=== PATIENT | female | born 1970 | race Caucasian/White ===

== ENCOUNTER 2020-12-07 13:37 | Observation (INO) ==
--- NOTE | 2020-12-07 14:29 | Emergency Department Note ---
Impression & Plan Transaminitis, Chest pain, Abdominal pain ED Provider Note NAME: STEF HORTON AGE: 50 SEX: F : 1970 ARRIVES VIA: Walk-In INFORMANT: Patient, ED PROVIDER(S): Cj Jay MD Chief Complaint: Chest pain and shoulder pain HPI: Patient does present with concern for chest discomfort as well as shoulder pain. The patient states that the chest discomfort is really in her lower chest almost at the epigastric area. The patient states that it does cause increasing pain whenever she takes a big deep breath. The patient states it has been intermittent in nature. The patient does not is feel as though the chest pain radiates to the shoulder that there are 2 separate pains. Patient states that it is 8 out of 10 in nature and sharp. The patient denies any fevers chills or shortness of breath. Patient denies any lower extremity swelling or history of DVT. The patient does not use control or estrogen replacement therapy. Patient has had mild nausea but no vomiting. The patient has not taken anything at home for symptoms. The patient is vaccinated for Covid. The patient does relate that this does feel somewhat similar to her prior time that she required a cholecystectomy. ROS: See HPI for pertinent positives and negatives. A total of 10 systems were reviewed and otherwise negative. Past medical history: See below Surgical history: See below Social history: See below Physical Exam: GENERAL: NAD, wearing a mask, non-toxic. EYE EXAM: Normal conjunctiva. PERRL, no anisocoria and EOM's grossly intact w/o pain. OROPHARYNX: Moist mucus membranes. Grossly normal dentition. NECK: Supple, no nuchal rigidity, no adenopathy, non-tender. No signs of meningismus. LUNGS: Clear to auscultation. Normal chest wall mechanics. HEART: NSR, no MRG. ABDOMEN: Abdomen soft, epigastric pain, no lower abdominal pain, normo-active bowel sounds, no masses, no rebound or guarding. BACK: No CVA TTP. SKIN: No rashes and no bruising. UPPER EXTREMITIES: Upper extremities are grossly normal. LOWER EXTREMITIES: Grossly normal, no edema. NEURO EXAM: A&O x3, cranial nerves II-XII grossly intact, normal speech, moves all 4 extremities on command w/o issue. Differential diagnoses: Appendicitis, ovarian cyst, ovarian torsion, ectopic , TOA, PID, infections, diverticulitis, UTI, obstruction, mesenteric ischemia, aortic pathology, inflammatory bowel disease, renal colic, PUD, pancreatitis, biliary pathology, hernia, volvulus, constipation, as well as other pathologies. Course: Patient was seen and evaluated the bedside. Full history physical exam was performed. EKG interpreted by me Normal sinus rhythm, 77, normal intervals, normal axis, T wave inversion in lead III not in contiguous leads. No ST changes. Imaging Studies: See Below Cardiac monitoring: An order was placed for continuous cardiac monitoring. The monitor shows a rate of 70 with sinus rhythm. MDM: Patient does present with concern for chest pain although this may be more epigastric or abdominal pain. Blood work was obtained along with a D-dimer. Patient is white count of 10.8 with normal hemoglobin. Platelet count is unremarkable. Patient's liver function test testing shows elevation AST ALT and alk phos. Lipase is elevated. EKG with no ischemic changes and troponin is not detectable. Patient has not complained of any exertional symptoms believe atypical chest pain to be less likely. I do think that the patient's chest pain that she describes is related to the patient's abdominal pain. Patient did have an elevated D-dimer but I think is likely due to the inflammatory process in her abdomen and do not believe the patient has PE. The patient has no signs stigmata DVT on exam. The patient CT does not show any convincing evidence of pancreatitis but the patient does have biliary ductal dilatation. The patient may have a stricture or possible stone in the duct. I did order an MRCP. I spoke with Dr. Jackson who is in agreement with plan of care. I also did speak with the on-call hospitalist Sol Robbins PA-C and the patient was admitted by Dr. Salvador. Of note the patient did have cyst of the left breast. The patient states that she has been serially followed and will ensure that she follows up as an outpatient. Past Med/Surg History Social History Smoking Status: Never smoker Feels Safe at Home: Yes Allergies Allergies Allergy/AdvReac Type Severity Reaction Status Date / Time Penicillins Allergy Intermediate RASH, Verified 12/07/20 14:59 VOMITING Home Meds Home Medications Medication Instructions Recorded Confirmed ascorbic acid (vitamin C) 500 mg 500 mg PO DAILY 12/07/20 12/07/20 tablet (Vitamin C) atorvastatin 80 mg tablet 80 mg PO DAILY 12/07/20 12/07/20 cholecalciferol (vitamin D3) 125 125 mcg PO DAILY 12/07/20 12/07/20 mcg (5,000 unit) tablet (Vitamin D3) cyanocobalamin (vitamin B-12) 1,000 mcg PO DAILY 12/07/20 12/07/20 1,000 mcg tablet (Vitamin B-12) levothyroxine 137 mcg tablet 137 mcg PO DAILY 12/07/20 12/07/20 losartan 25 mg tablet 25 mg PO DAILY 12/07/20 12/07/20 metformin 500 mg tablet 1,000 mg PO BID 12/07/20 12/07/20 omeprazole 20 mg capsule,delayed 20 mg PO DAILYBB 12/07/20 12/07/20 release semaglutide (Ozempic) 0.25 mg SUBCUT WK 12/07/20 12/07/20 venlafaxine 75 mg capsule,extended 75 mg PO DAILY 12/07/20 12/07/20 release 24 hr Results & Data (ED) Vital Signs Vital Signs - 24 hr 12/07/20 13:38 12/07/20 14:48 12/07/20 15:17 Temperature 36.9 C Temperature Source Oral Pulse Rate 87 80 67 Pulse Rate [Finger] 77 Pulse Rate from SpO2 Sensor 66 Respiratory Rate 18 18 18 Blood Pressure 132/83 130/75 Blood Pressure [Right Arm] 118/74 Blood Pressure Mean 99 93 Blood Pressure Mean [Right Arm] 88 Pulse Oximetry 98 98 96 Oxygen Delivery Method Room Air Oxygen Flow Rate Sepsis Recent Fever Within 48 Hours No Sepsis New/Unexplained Change in Mental Status No Sepsis Action Taken by Nursing No Action Required Oxygen Flow Rate - Titration Pulse Oximetry Post Tiitration 12/07/20 15:38 12/07/20 16:28 12/07/20 17:11 Temperature 36.8 C Temperature Source Axillary Pulse Rate 66 Pulse Rate [Finger] 84 Pulse Rate from SpO2 Sensor Respiratory Rate 18 22 Blood Pressure 130/86 Blood Pressure [Right Arm] 122/75 Blood Pressure Mean 100 Blood Pressure Mean [Right Arm] 90 Pulse Oximetry 97 91 Oxygen Delivery Method Room Air Nasal Cannula Oxygen Flow Rate 2 Sepsis Recent Fever Within 48 Hours Sepsis New/Unexplained Change in Mental Status Sepsis Action Taken by Nursing Oxygen Flow Rate - Titration 2 Pulse Oximetry Post Tiitration 95 12/07/20 18:51 Temperature 37 C Temperature Source Oral Pulse Rate Pulse Rate [Finger] 70 Pulse Rate from SpO2 Sensor Respiratory Rate 18 Blood Pressure Blood Pressure [Right Arm] 130/86 Blood Pressure Mean Blood Pressure Mean [Right Arm] 100 Pulse Oximetry 97 Oxygen Delivery Method Oxygen Flow Rate Sepsis Recent Fever Within 48 Hours Sepsis New/Unexplained Change in Mental Status Sepsis Action Taken by Nursing Oxygen Flow Rate - Titration Pulse Oximetry Post Tiitration Home Medications Current Medication List: was personally reviewed by me Laboratory Data Attestation: I reviewed the patient's lab results. Result diagrams: 12/07/20 15:10 12/07/20 15:10 Lab Results 12/07/20 12/07/20 12/07/20 Range/Units 15:10 15:10 15:10 WBC 10.89 H (4.8-10.8) K/uL RBC 5.14 (4.2-5.4) M/uL Hgb 15.7 (12.0-16.0) g/dL Hct 47.4 H (37-47) % MCV 92.2 (80-100) fL MCH 30.5 (25-34) pg MCHC 33.1 (32-36) g/dL RDW Std Deviation 43.7 (36.4-46.3) fL RDW Coeff of Nidia 12.8 (11.5-14.5) % Plt Count 240 (130-400) K/uL MPV 10.2 (7.4-10.4) fL Immature Gran % (Auto) 0.2 % Neut % (Auto) 54.7 % Lymph % (Auto) 33.1 % [place] % (Auto) 8.5 % Eos % (Auto) 3.1 % Baso % (Auto) 0.4 % Neut # (Auto) 5.96 (1.4-6.5) K/uL Lymph # (Auto) 3.60 H (1.2-3.4) K/uL [place] # (Auto) 0.93 H (0.11-0.59) K/uL Eos # (Auto) 0.34 (0-0.5) K/uL Baso # (Auto) 0.04 (0-0.2) K/uL Immature Gran # (Auto) 0.02 (0.00-0.02) K/uL APTT 23.6 (21.0-31.0) Seconds PTT Ratio 0.9 D-Dimer 650 H* (0-500) ug/L FEU Sodium 139 (136-145) mmol/L Potassium 3.9 (3.5-5.1) mmol/L Chloride 106 (98-107) mmol/L Carbon Dioxide 29 (21-32) mmol/L Anion Gap 4.0 (3-11) BUN 11 (7-18) mg/dl Creatinine 0.87 (0.6-1.2) mg/dl Est Cr Clr Drug Dosing 81.4 ml/min Est GFR ( Amer) 88.8 ml/min Est GFR (Non-Af Amer) 76.6 ml/min BUN/Creatinine Ratio 13.1 (10-20) Glucose 99 (70-99) mg/dl Calcium 9.1 (8.5-10.1) mg/dl Total Bilirubin 0.7 (0.2-1) mg/dl AST 443 H (15-37) U/L ALT 267 H (12-78) U/L Alkaline Phosphatase 146 H (45-117) U/L Troponin I < 0.015 (0-0.045) ng/ml Total Protein 7.6 (6.4-8.2) gm/dl Albumin 3.7 (3.4-5.0) gm/dl Globulin 3.9 (2.5-4.0) gm/dl Albumin/Globulin Ratio 0.9 (0.9-2) Lipase 605 H (73-393) U/L Administered Medications Discontinued Medications Famotidine (Pepcid 20mg Iv Push) 20 mg in 5 mls @ 2.5 mls/min IV NOW STA Stop: 12/07/20 14:49 Last Admin: 12/07/20 15:24 Dose: 2.5 mls/min Documented by: [id number] Sodium Chloride (Nss 1000ml) 1,000 mls @ 999 mls/hr IV .Q1H1M ONE Stop: 12/07/20 15:50 Last Infusion: 12/07/20 16:39 Dose: 0 mls/hr Documented by: [id number] Admin: 12/07/20 15:05 Dose: 999 mls/hr Documented by: [id number] Ioversol (Optiray 320 100ml) 94 ml IV ONCE ONE Stop: 12/07/20 16:16 Last Admin: 12/07/20 16:15 Dose: 94 ml Documented by: [id number] Ondansetron HCl (Ondansetron Inj 2 Mg/Ml 2 Ml Vial) 4 mg IV NOW STA Stop: 12/07/20 14:49 Last Admin: 12/07/20 15:24 Dose: 4 mg Documented by: [id number] Imaging Data Radiologist's Impression: Chest X-Ray 12/07/20 14:48 XR chest 1V portable CLINICAL HISTORY: Chest Pain COMPARISON STUDY: No previous studies for comparison. FINDINGS: Lung volumes are normal. There is no pneumothorax or pleural effusion. No consolidation is identified. Cardiac size is within normal limits. No evidence for pulmonary edema. IMPRESSION: No acute cardiopulmonary findings. ACT 112: Negative or not required by law. Electronically signed by: Jose Whatley M.D. 12/07/2020 3:34 PM Abdomen/Pelvis CT 12/07/20 15:52 CT OF THE ABDOMEN AND PELVIS WITH CONTRAST CLINICAL HISTORY: Abdominal pain, elevated transaminases/lipase COMPARISON STUDY: None. TECHNIQUE: Following IV administration of 94 mL of Optiray, axial images of the abdomen and pelvis were obtained from the lung bases to the proximal femurs. Images were reviewed in the axial, sagittal, and coronal planes. IV contrast was administered without complication. Automated exposure control was utilized for the study. A dose lowering technique was utilized adhering to the principles of ALARA. CT DOSE: 1192.27 mGy.cm FINDINGS: Lung bases are unremarkable. Note is made of a 3 cm density within the lower inner quadrant of the left breast. This is suboptimally assessed by CT. No pneumatosis, free air or portal venous gas is present. There is hepatic steatosis. No hepatic lesions are present. A splenule is noted. The spleen, adrenal glands and pancreas are unremarkable by CT. There is no peripancreatic infiltration. There are are no peripancreatic fluid collections. The gallbladder is not visualized and may be surgically absent. There is slight dilatation of the common bile duct, measuring 8 mm in caliber. A few hypodense right renal lesions are difficult to characterize given their small size but probably ref lect cysts. There is no hydronephrosis. There are no urinary calculi. The appendix is not visualized. There is no right lower quadrant inflammation. The caliber and wall thickness of small and large bowel are normal. Major vasculature is patent. There is no lymphadenopathy or ascites. No acute fracture or suspicious lesion is identified within visualized skeletal structures. IMPRESSION: 1. Normal CT appearance of the pancreas. Nonvisualization of the gallbladder which may be surgically absent. Mild dilatation of the common bile duct which could be correlated with liver function tests. 2. Hepatic steatosis. 3. No bowel obstruction. No bowel wall thickening. 4. 3 cm density within the lower inner quadrant of the left breast. This pr obably reflects normal breast tissue or cluster of cysts. However, a mammogram and ultrasound are recommended to exclude a breast mass. ACT 112: Negative or not required by law. Electronically signed by: Jose Whatley M.D. 12/07/2020 4:49 PM Discharge Plan Visit Data Chief Complaint: Chest Pain Stated Complaint: CHEST PAIN,SOB,INTO LEFT SHOULDER,NAUSEA ED Provider: Cj Jay Discharge Problem: Transaminitis, Chest pain, Abdominal pain Patient Disposition: Admitted As Inpatient Forms Stand Alone Forms: [facility] Prescriptions Prescriptions: No Action levothyroxine 137 mcg Tablet 137 mcg PO DAILY RF: 0 metformin 500 mg tablet 1,000 mg PO BID RF: 0 atorvastatin 80 mg tablet 80 mg PO DAILY RF: 0 venlafaxine 75 mg capsule,extended release 24hr 75 mg PO DAILY RF: 0 cyanocobalamin (vitamin B-12) [Vitamin B-12] 1,000 mcg Tablet 1,000 mcg PO DAILY RF: 0 ascorbic acid (vitamin C) [Vitamin C] 500 mg Tablet 500 mg PO DAILY RF: 0 losartan 25 mg tablet 25 mg PO DAILY RF: 0 omeprazole 20 mg capsule,delayed release(DR/EC) 20 mg PO DAILYBB RF: 0 Ozempic 0.25 mg or 0.5 mg(2 mg/1.5 mL) pen injector 0.25 mg SUBCUT WK RF: 0 cholecalciferol (vitamin D3) [Vitamin D3] 125 mcg (5,000 unit) Tablet 125 mcg PO DAILY RF: 0 Referrals Referrals: PCP,NO [Physician] -
[2020-12-07] MEDS ORDERED: ONDANSETRON INJ 2 MG/ML 2 ML VIAL IV STA (14:48)
[2020-12-07] MEDS ORDERED: FAMOTIDINE 20MG IV PUSH 20 MG/5 ML SYR IV STA (14:48)
[2020-12-07] MEDS ORDERED: SODIUM CHLORIDE 0.9% 1000ML 1,000 ML IV ONE (14:50)
[2020-12-07 15:28] LABS: Basophils # (auto) 0.04 K/uL (0-0.2); Basophils % (auto) 0.4 %; Eosinophils # (auto) 0.34 K/uL (0-0.5); Eosinophils % (auto) 3.1 %; Hematocrit (blood only) 47.4 % (37-47); Hemoglobin 15.7 g/dL (12.0-16.0); Immature Granulocytes # (auto) 0.02 K/uL (0.00-0.02); Immature Granulocytes % (auto) 0.2 %; Lymphocytes % (auto) 33.1 %; Mean Corpuscular Hemoglobin 30.5 pg (25-34); Mean Corpuscular Hgb Conc 33.1 g/dL (32-36); Mean Corpuscular Volume 92.2 fL (80-100); Mean Platelet Volume 10.2 fL (7.4-10.4); Monocytes # (auto) 0.93 K/uL (0.11-0.59); Monocytes % (auto) 8.5 %; Neutrophils # (auto) 5.96 K/uL (1.4-6.5); Neutrophils % (auto) 54.7 %; Platelet Count 240 K/uL (130-400); RDW Coefficient of Variation 12.8 % (11.5-14.5); RDW Standard Deviation 43.7 fL (36.4-46.3); Red Blood Count 5.14 M/uL (4.2-5.4); White Blood Count 10.89 K/uL (4.8-10.8)
--- NOTE | 2020-12-07 15:36 | XRay Report ---
XR chest 1V portable CLINICAL HISTORY: Chest Pain COMPARISON STUDY: No previous studies for comparison. FINDINGS: Lung volumes are normal. There is no pneumothorax or pleural effusion. No consolidation is identified. Cardiac size is within normal limits. No evidence for pulmonary edema. IMPRESSION: No acute cardiopulmonary findings. ACT 112: Negative or not required by law. Electronically signed by: Jose Whatley M.D. 12/07/2020 3:34 PM
[2020-12-07 15:38] LABS: Partial Thromboplastin Ratio 0.9; Partial Thromboplastin Time 23.6 Seconds (21.0-31.0)
[2020-12-07 15:39] LABS: D Dimer 650 ug/L FEU (0-500)
[2020-12-07 15:44] LABS: Alanine Aminotransferase 267 U/L (12-78); Albumin Level 3.7 gm/dl (3.4-5.0); Aspartate Aminotransferase 443 U/L (15-37); BUN Creatinine Ratio 13.1 (10-20); Blood Urea Nitrogen 11 mg/dl (7-18); Calcium 9.1 mg/dl (8.5-10.1); Carbon Dioxide 29 mmol/L (21-32); Chloride 106 mmol/L (98-107); Creatinine Clr Calc Pharmacy 81.4 ml/min; Est GFR (African American) 88.8 ml/min; Est GFR (Non-African American) 76.6 ml/min; Glucose 99 mg/dl (70-99); Lipase 605 U/L (73-393); Potassium 3.9 mmol/L (3.5-5.1); Sodium 139 mmol/L (136-145)
[2020-12-07 15:49] LABS: Albumin Globulin Ratio 0.9 (0.9-2); Alkaline Phosphatase 146 U/L (45-117); Bilirubin,Total 0.7 mg/dl (0.2-1); Globulin 3.9 gm/dl (2.5-4.0); Total Protein 7.6 gm/dl (6.4-8.2); Troponin I < 0.015 ng/ml (0-0.045)
[2020-12-07] MEDS ORDERED: OPTIRAY 320 100ml IV ONE (16:15)
--- NOTE | 2020-12-07 16:50 | CT Scan Report ---
CT OF THE ABDOMEN AND PELVIS WITH CONTRAST CLINICAL HISTORY: Abdominal pain, elevated transaminases/lipase COMPARISON STUDY: None. TECHNIQUE: Following IV administration of 94 mL of Optiray, axial images of the abdomen and pelvis we re obtained from the lung bases to the proximal femurs. Images were reviewed in the axial, sagittal, and coronal planes. IV contrast was administered without complication. Automated exposure control wa s utilized for the study. A dose lowering technique was utilized adhering to the principles of ALARA . CT DOSE: 1192.27 mGy.cm FINDINGS: Lung bases are unremarkable. Note is made of a 3 cm density within the lower inner quadrant of the left breast. This is suboptimally assessed by CT. No pneumatosis, free air or portal venous gas is present. There is hepatic steatosis. No hepatic lesi ons are present. A splenule is noted. The spleen, adrenal glands and pancreas are unremarkable by CT. There is no peripancreatic infiltration. There are are no peripancreatic fluid collections. The gall bladder is not visualized and may be surgically absent. There is slight dilatation of the common bile duct, measuring 8 mm in caliber. A few hypodense right renal lesions are difficult to characterize g iven their small size but probably reflect cysts. There is no hydronephrosis. There are no urinary ca lculi. The appendix is not visualized. There is no right lower quadrant inflammation. The caliber and wall thickness of small and large bowel are normal. Major vasculature is patent. There is no lymphad enopathy or ascites. No acute fracture or suspicious lesion is identified within visualized skeletal structures. IMPRESSION: 1. Normal CT appearance of the pancreas. Nonvisualization of the gallbladder which may be surgically absent. Mild dilatation of the common bile duct which could be correlated with liver function tests. 2. Hepatic steatosis. 3. No bowel obstruction. No bowel wall thickening. 4. 3 cm density within the lower inner quadrant of the left breast. This probably reflects normal gail ast tissue or cluster of cysts. However, a mammogram and ultrasound are recommended to exclude a yamilet st mass. ACT 112: Negative or not required by law. Electronically signed by: Jose Whatley M.D. 12/07/2020 4:49 PM
--- NOTE | 2020-12-07 18:46 | History & Physical Report ---
Date of Service December 07, 2020 Assessment & Plan (1) Abdominal pain: (2) Transaminitis: Plan: Pt is 50 y/o F with PMH DM II, HTN, dyslipidemia, depression, anxiety, GERD presented to ER with c/o chest pain, upper abdominal pain today after eating cereal with nausea and episode SOB. Several weeks with left shoulder aching radiating to back. H/O cholecystectomy In ER patient afebrile, vitals stable. WBC: 10.8, T bili: 0.7, AST: 443, ALT: 267, alk phos: 146, lipase: 605. D-dimer: 650, CT abdomen pelvis: Mild dilatation of the common bile duct which could be correlated with liver function tests, hepatic steatosis. Possible retained gallstone and common bile duct In ER was given IVF, Pepcid, Zofran with relief of nausea. LR at 200 mL/hour N.p.o. Tramadol as needed pain MRCP pending GI consult CBC, CMP in a.m. (3) Elevated d-dimer: Plan: D-dimer: 650 Patient had episode of shortness of breath with abdominal pain today. Since in ER has not had any further shortness of breath. No tachypnea no tachycardia and no hypoxia noted Low suspicion for PE Patient had IVP dye with CT abdomen pelvis today already. Will hold on CTA chest currently Obtain bilateral venous Doppler lower extremities to rule out DVT May need to consider CTA chest tomorrow (4) Diabetes mellitus, type II: Plan: A1c: 7.2 on 10/13/2020 Hold home glycemic agents NovoLog sliding scale per protocol (5) HTN (hypertension): Plan: Stable Continue losartan (6) Dyslipidemia: Plan: Hold statin at this time (7) Hypothyroidism: Plan: Continue levothyroxine (8) Anxiety and depression: Plan: Continue Effexor (9) Abnormal CT scan: Plan: CT abdomen and pelvis: 3 cm density within the lower inner quadrant of the left breast. This probably reflects normal breast tissue or cluster of cysts. Will need mammogram/ultrasound to further exclude a breast mass. DVT Prophylaxis -SCDs Full Code as per discussion with pt Follows with Dr Garcia for routine care Pt was seen and care coordinated with Dr Salvador. See addendum History of Present Illness Chief Complaint: chest pain/abdominal pain Primary Care Provider: Beatriz Garcia, DO Pt is 50 y/o F with PMH DM II, HTN, dyslipidemia, depression, anxiety, GERD presented to ER with c/o chest pain, upper abdominal pain. Pt states 2 days ago had episode sharp mid lower chest/mid upper abdominal pain. Today he ate bowl of cereal and shortly after developed mid upper abdominal pain and mid lower chest pain described as sharp in nature. Reports also had associated shortness of breath. Having nausea today, no vomiting. Past several weeks with left shoulder aching radiating to back. Denies lower extremity pain, edema or erythema. Patient with history of cholecystectomy. She reports this current pain and left shoulder aching feels like when she had prior gallbladder attacks. Denies fever/chills, diaphoresis, diarrhea, constipation, DOWNING, dizziness, syncope, vision changes, neck pain, orthopnea, palpitations, cough, sore throat, choking, otalgia, rhinorrhea, paresthesias, weakness, extremity weakness, rashes, urinary symptoms. Denies recent surgery, recent travel, or prolonged immobilization. In ER patient afebrile, vitals stable. WBC: 10.8, T bili: 0.7, AST: 443, ALT: 267, alk phos: 146, lipase: 605. D-dimer: 650, CT abdomen pelvis: Mild dilatation of the common bile duct which could be correlated with liver function tests, hepatic steatosis. In ER was given IVF, Pepcid, Zofran with relief of nausea. Patient has not had any further shortness of breath and reports abdominal pain is much improved. Allergies Allergy/AdvReac Type Severity Reaction Status Date / Time Penicillins Allergy Intermediate RASH, Verified 12/07/20 14:59 VOMITING Home Medications Medication Instructions Recorded Confirmed Type ascorbic acid (vitamin C) 500 mg 500 mg PO DAILY 12/07/20 12/07/20 History tablet (Vitamin C) atorvastatin 80 mg tablet 80 mg PO DAILY 12/07/20 12/07/20 History cholecalciferol (vitamin D3) 125 125 mcg PO DAILY 12/07/20 12/07/20 History mcg (5,000 unit) tablet (Vitamin D3) cyanocobalamin (vitamin B-12) 1,000 mcg PO DAILY 12/07/20 12/07/20 History 1,000 mcg tablet (Vitamin B-12) levothyroxine 137 mcg tablet 137 mcg PO DAILY 12/07/20 12/07/20 History losartan 25 mg tablet 25 mg PO DAILY 12/07/20 12/07/20 History metformin 500 mg tablet 1,000 mg PO BID 12/07/20 12/07/20 History omeprazole 20 mg capsule,delayed 20 mg PO DAILYBB 12/07/20 12/07/20 History release semaglutide (Ozempic) 0.25 mg SUBCUT WK 12/07/20 12/07/20 History venlafaxine 75 mg capsule,extended 75 mg PO DAILY 12/07/20 12/07/20 History release 24 hr Past Med/Surg History Medical History Anxiety and depression Diabetes mellitus, type II Dyslipidemia HTN (hypertension) Hypothyroidism Surgical History History of cholecystectomy Hx of tonsillectomy Family History Other Cancer Diabetes Social History Smoking Status: Never smoker Hx Alcohol Use: No Hx Substance Use: No Preferred Language: South African Communication Ability: Effective Field Property Loss Specialist Required: No Beliefs That Will Affect Care: None Current Living Situation: Spouse Other Information That Helps Us Care for You: No Feels Safe at Home: Yes Safety Concerns: Feels Safe At This Time Assistive Devices: Glasses Review of Systems Review of Systems: All systems reviewed & are unremarkable except as noted in HPI & below Physical Exam Physical Exam: General: no distress, obese Head: normocephalic, atraumatic Eyes: PERRL, EOM's intact, conjunctiva non-injected, anicteric ENT: normal inspection external ears, nose, mucous membranes moist Neck: supple, trachea midline Lungs: clear, no respiratory distress, no wheezing/rhonchi/rales CV: RRR, no murmur, no pretibial edema Abd: normal BS, soft, + tenderness to palpation epigastric only without rebound or guarding Ext: no cyanosis, no erythema, no edema no calf tenderness Neuro: A&O x 3, no focal deficits noted, normal affect Skin: warm, dry Results & Data Results & Data ([facility]) Vital Signs (Past 12 Hours) Vital Signs Temp Pulse Pulse Resp BP BP Pulse Ox 12/07/20 17:11 66 22 130/86 12/07/20 16:28 91 12/07/20 15:38 36.8 C 84 18 122/75 97 12/07/20 15:17 67 18 130/75 96 12/07/20 14:48 80 18 98 12/07/20 13:38 36.9 C 87 77 18 132/83 118/74 98 Laboratory Results Short CBC 12/07/20 Range/Units 15:10 WBC 10.89 H (4.8-10.8) K/uL Hgb 15.7 (12.0-16.0) g/dL Hct 47.4 H (37-47) % Plt Count 240 (130-400) K/uL BMP 12/07/20 15:10 Sodium 139 Potassium 3.9 Chloride 106 Carbon Dioxide 29 BUN 11 Creatinine 0.87 Glucose 99 Calcium 9.1 Cardiac Enzymes 12/07/20 Range/Units 15:10 Troponin I < 0.015 (0-0.045) ng/ml Liver Function 12/07/20 Range/Units 15:10 Total Bilirubin 0.7 (0.2-1) mg/dl AST 443 H (15-37) U/L ALT 267 H (12-78) U/L Alkaline Phosphatase 146 H (45-117) U/L Albumin 3.7 (3.4-5.0) gm/dl Diagnostic Findings Chest X-Ray 12/07/20 14:48 XR chest 1V portable CLINICAL HISTORY: Chest Pain COMPARISON STUDY: No previous studies for comparison. FINDINGS: Lung volumes are normal. There is no pneumothorax or pleural effusion. No consolidation is identified. Cardiac size is within normal limits. No evidence for pulmonary edema. IMPRESSION: No acute cardiopulmonary findings. ACT 112: Negative or not required by law. Electronically signed by: Jose Whatley M.D. 12/07/2020 3:34 PM Abdomen/Pelvis CT 12/07/20 15:52 CT OF THE ABDOMEN AND PELVIS WITH CONTRAST CLINICAL HISTORY: Abdominal pain, elevated transaminases/lipase COMPARISON STUDY: None. TECHNIQUE: Following IV administration of 94 mL of Optiray, axial images of the abdomen and pelvis were obtained from the lung bases to the proximal femurs. Images were reviewed in the axial, sagittal, and coronal planes. IV contrast was administered without complication. Automated exposure control was utilized for the study. A dose lowering technique was utilized adhering to the principles of ALARA. CT DOSE: 1192.27 mGy.cm FINDINGS: Lung bases are unremarkable. Note is made of a 3 cm density within the lower inner quadrant of the left breast. This is suboptimally assessed by CT. No pneumatosis, free air or portal venous gas is present. There is hepatic steatosis. No hepatic lesions are present. A splenule is noted. The spleen, adrenal glands and pancreas are unremarkable by CT. There is no peripancreatic infiltration. There are are no peripancreatic fluid collections. The gallbladder is not visualized and may be surgically absent. There is slight dilatation of the common bile duct, measuring 8 mm in caliber. A few hypodense right renal lesions are difficult to characterize given their small size but probably reflect cysts. There is no hydronephrosis. There are no urinary calculi. The appendix is not visualized. There is no right lower quadrant inflammation. The caliber and wall thickness of small and large bowel are normal. Major vasculature is patent. There is no lymphadenopathy or ascites. No acute fracture or suspicious lesion is identified within visualized skeletal structures. IMPRESSION: 1. Normal CT appearance of the pancreas. Nonvisualization of the gallbladder which may be surgically absent. Mild dilatation of the common bile duct which could be correlated with liver function tests. 2. Hepatic steatosis. 3. No bowel obstruction. No bowel wall thickening. 4. 3 cm density within the lower inner quadrant of the left breast. This probably reflects normal breast tissue or cluster of cysts. However, a mammogram and ultrasound are recommended to exclude a breast mass. ACT 112: Negative or not required by law. Electronically signed by: Jose Whatley M.D. 12/07/2020 4:49 PM ECG Rate (beats per minute): 77 Rhythm: sinus rhythm Code Status & VTE Plan VTE Prophylaxis Plan VTE Prophylaxis will be ordered: Yes Supervising Physician Co-Signing Physician Notes Attending Addendum: delayed entry date of service noted above care coordinated with YOUSIF Lyle please refer to her notes for full details, I agree with her notes patient seen and examined, records reviewed by myself as well on exam, patient seen resting in bed, comfortable at bedside states she feels improved compared to admission epigastric abdominal pain radiating to left shoulder blade much better no nausea, chills no chest pain, dyspnea, palpitations, dizziness no other symptoms VS noted and reviewed oriented x 3 , not in distress, speaks in sentences with no effort nor accessory muscle use normal rate, regular rhythm, no murmurs clear breath sounds bilaterally non distended, soft, nontender no bipedal edema, erythema, warmth no neuro deficits WBC 10.8 Hg 15.7 Crea 0.89 AST 443 ALT 267 AP 146 T logan 0.[address] abd: 1. Normal CT appearance of the pancreas. Nonvisualization of the gallbladder which may be surgically absent. Mild dilatation of the common bile duct which could be correlated with liver function tests. 2. Hepatic steatosis. 3. No bowel obstruction. No bowel wall thickening. 4. 3 cm density within the lower inner quadrant of the left breast. This probably reflects normal breast tissue or cluster of cysts. However, a mammogram and ultrasound are recommended to exclude a breast mass. ASSESSMENT AND PLAN> MILD ACUTE PANCREATITIS POSSIBLE CHOLEDOCHOLITHIASIS - MRCP ordered IV LR pain control NPO - GI consulted MILD D DIMER ELEVATION 650 no chest pain, dyspnea avoid CT angio as patient already received IV contrast Venous Doppler studies ordered HYPERTENSION Continue usual losartan DIABETES TYPE 2 Hold metformin and Ozempic other diagnoses and plan of care as per YOUSIF Kan notes Calos Salvador MD (1) Abdominal pain Abdominal location: epigastric Qualified Code(s): R10.13 - Epigastric pain
[2020-12-07] MEDS ORDERED: CIPROFLOXACIN / D5W 400 MG/200 ML BAG IV STA (19:58)
[2020-12-07] MEDS ORDERED: metroNIDAZOLE 500 MG/100 ML BAG IV STA (19:59)
[2020-12-07] MEDS ORDERED: CARBOHYDRATES FOR HYPOGLYCEMIA PO PRN (21:31)
[2020-12-07] MEDS ORDERED: PROMETHAZINE HCL 12.5 MG in SODIUM CHLORIDE 0.9% 50 ML IV PRN (21:31)
[2020-12-07] MEDS ORDERED: GLUCAGON FOR INJ 1 MG VIAL SQ PRN (21:31)
[2020-12-07] MEDS ORDERED: DEXTROSE 50% 50 ML SYRINGE IV PRN (21:31)
[2020-12-07] MEDS ORDERED: ACETAMINOPHEN 325 MG TAB PO PRN (21:31)
[2020-12-07] MEDS ORDERED: GLUCOSE 40% GEL 15 GM TUBE PO PRN (21:31)
[2020-12-07] MEDS ORDERED: GLUCOSE 10 TABS/TUBE PO PRN (21:31)
[2020-12-07] MEDS: INSULIN ASPART 100 UNITS/ML 3 ML PEN SC SCH (23:04)
[2020-12-08] MEDS: LACTATED RINGER'S 1,000 ML IV SCH ×2 (00:44→05:31)
[2020-12-08] MEDS: metroNIDAZOLE 500 MG/100 ML BAG IV SCH ×3 (03:59→19:53)
[2020-12-08] MEDS: LEVOTHYROXINE SODIUM 137 MCG TABLET PO SCH (05:31)
[2020-12-08] MEDS: PANTOprazole 40 MG TAB PO SCH (05:33)
--- NOTE | 2020-12-08 06:25 | Ultrasound Report ---
ULTRASOUND BILATERAL LOWER EXTREMITY VENOUS CLINICAL HISTORY: Atypical chest pain. Clinical concern for deep venous thrombosis. COMPARISON STUDY: No priors. TECHNIQUE: Real-time, grayscale, and color Doppler sonography of the deep veins of the right and left lower extremity was performed from the inguinal crease to the calf. Compression and augmentation wer e utilized. FINDINGS: There is no sonographic evidence of deep venous thrombosis identified in the right or left lower extremity. The common femoral, superficial femoral, and popliteal veins are patent and normally compressible bilaterally. The greater saphenous vein and the profunda femoris vein at the junction w ith the common femoral vein are clear in both legs. The visualized calf veins are patent bilaterally. IMPRESSION: There is no sonographic evidence of deep venous thrombosis identified in the right or lef t lower extremity. ACT 112: Negative or not required by law. Electronically signed by: Joshua Garcia M.D. 12/08/2020 6:24 AM
[2020-12-08 07:33] LABS: Hemoglobin 14.3 g/dL (12.0-16.0); Mean Corpuscular Hemoglobin 29.9 pg (25-34); Mean Corpuscular Hgb Conc 32.5 g/dL (32-36); Mean Corpuscular Volume 91.9 fL (80-100); Mean Platelet Volume 10.2 fL (7.4-10.4); Platelet Count 206 K/uL (130-400); RDW Coefficient of Variation 12.9 % (11.5-14.5); RDW Standard Deviation 43.1 fL (36.4-46.3); Red Blood Count 4.79 M/uL (4.2-5.4); White Blood Count 9.12 K/uL (4.8-10.8)
[2020-12-08 07:52] LABS: Albumin Level 3.2 gm/dl (3.4-5.0); BUN Creatinine Ratio 10.6 (10-20); Calcium 8.6 mg/dl (8.5-10.1); Creatinine Clr Calc Pharmacy 79.5 ml/min; Est GFR (African American) 86.4 ml/min; Est GFR (Non-African American) 74.5 ml/min
--- NOTE | 2020-12-08 07:59 | Magnetic Resonance Report ---
MRCP CLINICAL HISTORY: Elevated hepatic transaminases. Elevated lipase. COMPARISON STUDY: Abdominal CT dated 12/07/2020. TECHNIQUE: Abdominal MRCP is performed utilizing various T1 and T2-weighted sequences in the axial an d coronal planes. 3-D reformats are created and assessed. IV contrast was not administered for this e xamination. FINDINGS: The gallbladder is surgically absent. There is no intrahepatic biliary ductal dilatation. The common bile duct is mildly dilated measuring 10 mm in diameter. No intraluminal filling defects are identifi ed to suggest choledocholithiasis. The pancreatic duct is normal in caliber. The liver is enlarged measuring up to 20 cm in length. Hepatic steatosis was shown on today's CT scan . The unenhanced liver is otherwise normal as visualized. The unenhanced spleen, adrenal glands, and pancreas are grossly normal. The kidneys are normal in size and without hydronephrosis. Small renal c ysts measure up to 14 mm. No abdominal ascites is identified. The abdominal aorta is normal in calibe r. There is no bowel obstruction. The visualized bony structures are normal as imaged. No significant pleural effusion is seen. IMPRESSION: 1. Status post cholecystectomy. 2. Nonspecific dilatation of the common bile duct is likely related to previous cholecystectomy/reser voir effect. 3. There is no evidence of choledocholithiasis. 4. Hepatomegaly and hepatic steatosis. Electronically signed by: Joshua Garcia M.D. 12/08/2020 7:58 AM
[2020-12-08] MEDS ORDERED: D5NSS + 20MEQ KCL 20 MEQ/1,000 ML BAG IV SCH (08:00)
[2020-12-08 08:08] LABS: Bilirubin,Total 0.5 mg/dl (0.2-1); Globulin 3.1 gm/dl (2.5-4.0); Total Protein 6.3 gm/dl (6.4-8.2)
--- NOTE | 2020-12-08 08:09 | Gastrointestinal Consultation ---
Date of Consultation December 08, 2020 Assessment & Plan (1) Abnormal CT scan: (2) Pancreatitis: (3) Transaminitis: pancreatitis unclear etiology possibly gallstone? MRCP results pending. She feels well now, it was a mild case nonetheless. She does have elevated LFTs, possibly related to a biliary etiology or in combination with her hepatic steatosis. Recs: --advance diet to low residue now, then advance as tolerated --supportive care --f/u MRCP results, if negative will need more extensive workup for etiologies of her pancreatitis as an outpatient, perhaps an EUS as an outpatient as well. --rest as per primary team Thank you for allowing me to participate in the care of this patient History of Present Illness Attending Physician: Calos Salvador MD History of Present Illness 50 y/o F with PMH DM II, HTN, dyslipidemia, depression, anxiety, GERD presented to ER with c/o chest pain, upper abdominal pain. Her epigastric pains radiated to her shoulders and back, felt like her cholecystitis pain from the when she had CCY. Has not had this pain since then. No hx pancreatitis nor family hx pancreatic disease nor malignancy. She denies alcohol abuse. LFTs were elevated as well as lipase, CT with normal pancreas and dilated CBD as well as hepatic steatosis. Her pains have resolved since being here and no nausea/vomiting, she is hungry and wants to eat. labs reviewed, VSS. MRCP results pending. Allergies Allergy/AdvReac Type Severity Reaction Status Date / Time Penicillins Allergy Intermediate RASH, Verified 12/07/20 14:59 VOMITING Home Medications Medication Instructions Recorded Confirmed Type ascorbic acid (vitamin C) 500 mg 500 mg PO DAILY 12/07/20 12/07/20 History tablet (Vitamin C) atorvastatin 80 mg tablet 80 mg PO DAILY 12/07/20 12/07/20 History cholecalciferol (vitamin D3) 125 125 mcg PO DAILY 12/07/20 12/07/20 History mcg (5,000 unit) tablet (Vitamin D3) cyanocobalamin (vitamin B-12) 1,000 mcg PO DAILY 12/07/20 12/07/20 History 1,000 mcg tablet (Vitamin B-12) levothyroxine 137 mcg tablet 137 mcg PO DAILY 12/07/20 12/07/20 History losartan 25 mg tablet 25 mg PO DAILY 12/07/20 12/07/20 History metformin 500 mg tablet 1,000 mg PO BID 12/07/20 12/07/20 History omeprazole 20 mg capsule,delayed 20 mg PO DAILYBB 12/07/20 12/07/20 History release semaglutide (Ozempic) 0.25 mg SUBCUT WK 12/07/20 12/07/20 History venlafaxine 75 mg capsule,extended 75 mg PO DAILY 12/07/20 12/07/20 History release 24 hr Patient History Medical History Anxiety and depression Diabetes mellitus, type II Dyslipidemia HTN (hypertension) Hypothyroidism Surgical History History of cholecystectomy Hx of tonsillectomy Family History Other Cancer Diabetes Social History Smoking Status: Never smoker Hx Alcohol Use: No Hx Substance Use: No Preferred Language: Marshallese Communication Ability: Effective Key Filer Required: No Beliefs That Will Affect Care: None Current Living Situation: Spouse Other Information That Helps Us Care for You: No Feels Safe at Home: Yes Safety Concerns: Feels Safe At This Time Assistive Devices: Glasses Review of Systems Constitutional: no fever, no chills and no weight loss Eyes: as per Subjective / HPI Ear, Nose, Mouth, Throat: as per Subjective / HPI Respiratory: no dyspnea and no dyspnea on exertion Cardiovascular: no chest pain and no palpitations Gastrointestinal: as per Subjective / HPI Musculoskeletal: no joint pain and no swelling Integumentary: no rash and no lesions Neurologic: no numbness and no paresthesia Psychiatric: no depression and no anxiety Endocrine: no fatigue Hematologic / Lymphatic: no easy bleeding and no easy bruising Physical Exam Constitutional: WD/WN, vitals as above Eyes: EOM intact bilaterally Neck: normal visual inspection Respiratory: normal respiratory effort, lungs clear to auscultation Cardiovascular: RRR, no murmur, no edema Gastrointestinal (Abdomen): Inspection/Auscultation: abdomen normal to inspection; abdomen not distended Percussion/Palpation: abdomen soft; abdomen nontender and no hepatosplenomegaly Musculoskeletal: Extremities: no cyanosis Gait: normal gait Skin: no rashes, warm and dry Neurologic: moves all extremities Psychiatric: A+Ox3, euthymic affect Results & Data ([facility]) Vital Signs (Past 12 Hours) Vital Signs Temp Pulse Pulse Resp BP BP Pulse Ox 12/08/20 07:45 36.7 C 62 18 111/69 95 12/08/20 07:25 56 L 12/08/20 04:20 36.7 C 64 18 103/61 91 12/07/20 23:05 71 12/07/20 22:29 36.9 C 63 18 127/73 94 12/07/20 22:19 66 PG Care Time/CCT Total # of Minutes Spent Total Time Spent with Patient: Total time spent is greater than 50% in coordination of care (as documented) at patient's floor/unit and/or counseling patient: Coding Level of Care Code 01733 Inpt Consult Level [address] scan R93.89 Pancreatitis K85.90 Transaminitis R74.01
[2020-12-08] MEDS: INSULIN ASPART 100 UNITS/ML 3 ML PEN SC SCH ×4 (08:27→21:05)
[2020-12-08] MEDS: VENLAFAXINE HCL XR 75 MG CAPXR PO SCH (08:29)
[2020-12-08] MEDS: LOSARTAN POTASSIUM 25 MG TAB PO SCH (08:29)
[2020-12-08] MEDS: CIPROFLOXACIN / D5W 400 MG/200 ML BAG IV SCH ×2 (08:29→19:53)
[2020-12-08] MEDS: traMADol HCL 50 MG TABLET PO PRN ×2 (08:38→16:48)
--- NOTE | 2020-12-08 08:44 | Electrocardiogram Report ---
Test Reason : Blood Pressure : / mmHG Vent. Rate : 077 BPM Atrial Rate : 077 BPM P-R Int : 164 ms QRS Dur : 082 ms QT Int : 392 ms P-R-T Axes : 018 009 025 degrees QTc Int : 443 ms Normal sinus rhythm Normal ECG No previous ECGs available Confirmed by Albaro Moore ([id number]) on 12/08/2020 8:43:55 AM Referred By: Confirmed By:Albaro Moore
--- NOTE | 2020-12-08 13:16 | Hospitalist Progress Note ---
Date of Service December 08, 2020 Assessment & Plan (1) Abdominal pain: (2) Transaminitis: Plan: MILD ACUTE PANCREATITIS POSSIBLE PASSAGE OF GALLBLADDER STONE OR SLUDGE HISTORY OF CHOLECYSTECTOMY per admitting service notes Pt is 50 y/o F with PMH DM II, HTN, dyslipidemia, depression, anxiety, GERD presented to ER with c/o chest pain, upper abdominal pain today after eating cereal with nausea and episode SOB. Several weeks with left shoulder aching radiating to back. H/O cholecystectomy In ER patient afebrile, vitals stable. WBC: 10.8, T bili: 0.7, AST: 443, ALT: 267, alk phos: 146, lipase: 605. D-dimer: 650, CT abdomen pelvis: Mild dilatation of the common bile duct which could be correlated with liver function tests, hepatic steatosis. MRCP: No choledocholithiasis or obstruction noted Clinically improved Abdominal pain resolved LFTs improving Lipase also normalized GI consulted No further testing or intervention at this point Diet advanced DC IV fluids Continue to monitor closely (3) Elevated d-dimer: Plan: Mild elevation of D-dimer D-dimer: 650 Patient had episode of shortness of breath with abdominal pain today. Since in ER has not had any further shortness of breath. No tachypnea no tachycardia and no hypoxia noted Low suspicion for PE CT angiogram avoided in light of patient already receiving CT scan IV contrast yesterday Venous Doppler studies negative Not hypoxic, tachycardic No shortness of breath or chest pain Monitor as outpatient (4) Diabetes mellitus, type II: Plan: A1c: 7.2 on 10/13/2020 Hold home glycemic agents NovoLog sliding scale per protocol (5) HTN (hypertension): Plan: Stable Continue losartan (6) Dyslipidemia: Plan: Hold statin at this time (7) Hypothyroidism: Plan: Continue levothyroxine (8) Anxiety and depression: Plan: Continue Effexor (9) Abnormal CT scan: Plan: CT abdomen and pelvis: 3 cm density within the lower inner quadrant of the left breast. This probably reflects normal breast tissue or cluster of cysts. Will need mammogram/ultrasound to further exclude a breast mass. -Further work up, management, and ff up as outpatient DVT Prophylaxis -SCDs Full Code as per discussion with pt Follows with Dr Garcia for routine care Disposition Anticipate discharge home tomorrow if medically stable Admission and Anticipated Discharge Date Admission Date: December 07, 2020 Subjective Follow-up for mild acute pancreatitis, etc. Seen sitting up in bed, comfortable, in good spirits Had breakfast No nausea, abdominal pain, chills Abdominal pain radiating to the left shoulder blade has now resolved No shortness of breath or chest pain, dizziness No other symptoms Review of Systems Review of Systems: all noted and negative except for above Physical Exam Physical Exam: General- oriented x 3, not in distress, speaks in sentences with no effort or accessory muscle use Eyes- anicteric Neck- no JVD Lungs- clear breath sounds bilaterally, no rales/wheezes Heart- normal rate, regular rhythm; no murmurs Abdomen- normal bowel sounds, nondistended, soft, nontender Extremities- no pretibial edema, no calf tenderness Neuro- alert, oriented x 3; no gross focal neurologic deficits Skin- warm & dry Results & Data Results & Data ([facility]) Vital Signs (Past 12 Hours) Vital Signs Temp Pulse Pulse Resp BP Pulse Ox 12/08/20 11:44 36.8 C 64 18 124/75 93 12/08/20 07:45 36.7 C 62 18 111/69 95 12/08/20 07:25 56 L 12/08/20 04:20 36.7 C 64 18 103/61 91 all noted and reviewed including below (1) Abdominal pain Abdominal location: epigastric Qualified Code(s): R10.13 - Epigastric pain
[2020-12-08] MEDS: FLUTICASONE PROPIONATE NA SPR 16 GM BTL SCH ×2 (14:43→20:29)
[2020-12-09] MEDS: metroNIDAZOLE 500 MG/100 ML BAG IV SCH ×2 (04:07→13:17)
[2020-12-09] MEDS: PANTOprazole 40 MG TAB PO SCH (05:53)
[2020-12-09] MEDS: LEVOTHYROXINE SODIUM 137 MCG TABLET PO SCH (05:54)
[2020-12-09] MEDS: INSULIN ASPART 100 UNITS/ML 3 ML PEN SC SCH ×2 (07:55→12:14)
[2020-12-09] MEDS: LOSARTAN POTASSIUM 25 MG TAB PO SCH (08:02)
[2020-12-09] MEDS: VENLAFAXINE HCL XR 75 MG CAPXR PO SCH (08:02)
[2020-12-09] MEDS: CIPROFLOXACIN / D5W 400 MG/200 ML BAG IV SCH (08:02)
[2020-12-09] MEDS: FLUTICASONE PROPIONATE NA SPR 16 GM BTL SCH (08:05)
[2020-12-09 08:59] LABS: Alanine Aminotransferase 124 U/L (12-78); Albumin Level 3.6 gm/dl (3.4-5.0); Aspartate Aminotransferase 53 U/L (15-37); BUN Creatinine Ratio 10.4 (10-20); Bilirubin Direct < 0.1 mg/dl (0-0.2); Blood Urea Nitrogen 10 mg/dl (7-18); Calcium 9.1 mg/dl (8.5-10.1); Carbon Dioxide 26 mmol/L (21-32); Chloride 107 mmol/L (98-107); Creatinine Clr Calc Pharmacy 72.1 ml/min; Est GFR (African American) 76.9 ml/min; Est GFR (Non-African American) 66.3 ml/min; Glucose 135 mg/dl (70-99); Lipase 179 U/L (73-393); Sodium 140 mmol/L (136-145)
[2020-12-09 09:02] LABS: Alkaline Phosphatase 117 U/L (45-117); Bilirubin,Total 0.5 mg/dl (0.2-1)
--- NOTE | 2020-12-09 09:23 | Gastroenterology Progress Note ---
Date of Service December 09, 2020 Assessment & Plan (1) Pancreatitis: (2) Dilated cbd, acquired: Plan: OP EUS. Our office will call to arrange. OK with DC from a GI standpoint as LFTs, lipase have improved and she feels well. She has not had significant leukocytosis or fevers/chills/sweats so no clear indication to continue antibiotics on DC. GI will sign off. Please recall if worsened or new GI symptoms. Admission and Anticipated Discharge Date Admission Date: December 07, 2020 Supervising Physician Co-Signing Physician Notes I saw and evaluated the patinet with Ms. Leblanc. She had presented over the weekend with sign suggestive of bilairy colic now resolved. Imaging shows a 10 mm cbd without stone material. As the patient is feeling improved will advance diet as tolerated and make arrangments for EUS in 2 to 4 weeks as an OP. I suspect the patient may have passed a stone and think it may be prudent to pursue EUS to ensure that none were missed on her MRCP. Should the patient develope any further symptoms we coud certainly re-evaluate timing of her follow-up exam. Please call with any questions, GI to sign off. Subjective Ms. Caryl Sanz is a 50 yr old female pt of Beatriz Ruiz with a hx of PMH DM II, HTN, dyslipidemia, depression, anxiety, GERD. She is post cholecystectomy in 1989. She experienced lower chest/epigastric/central upper back pain with nausea/vomiting this weekend. CT and MRCP with 1cm bile duct but no stones. Elevated AST on arrival at 443->53 today, ALT 269->124 and lipase 605->179. Mildly elevated WBC on arrival at 10.8 -> 9 today. Pain subsided a few hrs after arrival here on 12/07. Able to eat a low fat breakfast w/o pain or nausea this morning. Review of Systems Constitutional: no fever, no chills, no sweats and no fatigue Eyes: no problem reported Ear, Nose, Mouth, Throat: no ear pain, no tinnitus, no sore throat and no dysphagia Respiratory: + problem reported (lower chest pain and felt like it was painful to take a deep breath during the episode of pain but otherwise no SOB ) Cardiovascular: no chest pain with activity, no palpitations and no lightheadedness Gastrointestinal: as per Subjective / HPI Genitourinary: no problem reported Musculoskeletal: + problem reported; no joint pain, no stiffness and no muscle weakness Integumentary: no rash and no yellowing of the skin Physical Exam Eyes: PERRL, conjunctivae normal, anicteric sclerae ENMT: external ear and nose normal, oropharynx normal Neck: trachea midline, no thyromegaly Respiratory: normal respiratory effort, lungs clear to auscultation Cardiovascular: RRR, no murmur, no edema Gastrointestinal (Abdomen): soft, non distended, BS present, mild upper abdomen tenderness on deep palpation, no rebound or guarding. Musculoskeletal: no cyanosis or clubbing, extremities motor strength 5/5 Neurologic: PERRL, EOMI, accommodation nl, no face palsy, no dysarthria Psychiatric: A+Ox3, euthymic affect Results & Data ([facility]) Vital Signs (Past 12 Hours) Vital Signs Temp Pulse Pulse Resp BP BP Pulse Ox 12/09/20 07:29 36.7 C 64 18 111/67 93 12/09/20 07:18 66 12/09/20 03:01 36.7 C 66 18 92/56 L 95 12/08/20 23:06 36.8 C 74 20 120/76 92 12/08/20 22:41 65 Laboratory Results WBC 9, Hb 14, Hct 44, Plts 206, Na 140, K 4.0, Cl 107, CO2, 2.6, BUN 10, Cr 0.88, glucose 135 Diagnostic Findings CTAP with IV contrast 12/07/20: 1. Normal CT appearance of the pancreas. Nonvisualization of the gallbladder which may be surgically absent. Mild dilatation of the common bile duct which could be correlated with liver function tests. 2. Hepatic steatosis. 3. No bowel obstruction. No bowel wall thickening. 4. 3 cm density within the lower inner quadrant of the left breast. This probably reflects normal breast tissue or cluster of cysts. However, a mammogram and ultrasound are recommended to exclude a breast mass. MRCP 12/07/20: 1. Status post cholecystectomy. 2. Nonspecific dilatation of the common bile duct is likely related to previous cholecystectomy/reservoir effect. 3. There is no evidence of choledocholithiasis. 4. Hepatomegaly and hepatic steatosis.
--- NOTE | 2020-12-09 09:54 | Hospitalist Progress Note ---
Date of Service December 09, 2020 Assessment & Plan (1) Abdominal pain: (2) Transaminitis: Plan: MILD ACUTE PANCREATITIS POSSIBLE PASSAGE OF GALLBLADDER STONE OR SLUDGE HISTORY OF CHOLECYSTECTOMY per admitting service notes Pt is 50 y/o F with PMH DM II, HTN, dyslipidemia, depression, anxiety, GERD presented to ER with c/o chest pain, upper abdominal pain today after eating cereal with nausea and episode SOB. Several weeks with left shoulder aching radiating to back. H/O cholecystectomy In ER patient afebrile, vitals stable. WBC: 10.8, T bili: 0.7, AST: 443, ALT: 267, alk phos: 146, lipase: 605. D-dimer: 650, CT abdomen pelvis: Mild dilatation of the common bile duct which could be correlated with liver function tests, hepatic steatosis. MRCP: No choledocholithiasis or obstruction noted Given lactated Ringer's 200 cc/h Also given bowel rest and pain medications Clinically improved, tolerating diet well Abdominal pain resolved LFTs improving Lipase also normalized [facility] in [facility] GI consulted Recommend outpatient endoscopic ultrasound to be arranged by [facility] clinic (3) Elevated d-dimer: Plan: Mild elevation of D-dimer D-dimer: 650 Patient had episode of shortness of breath with abdominal pain today. Since in ER has not had any further shortness of breath. No tachypnea no tachycardia and no hypoxia noted Low suspicion for PE CT angiogram avoided in light of patient already receiving CT scan IV contrast yesterday Venous Doppler studies negative Not hypoxic, tachycardic No shortness of breath or chest pain Monitor as outpatient (4) Diabetes mellitus, type II: Plan: A1c: 7.2 on 10/13/2020 Continue home regimen (5) HTN (hypertension): Plan: Stable Continue losartan (6) Dyslipidemia: Plan: Hold statin at this time (7) Hypothyroidism: Plan: Continue levothyroxine (8) Anxiety and depression: Plan: Continue Effexor (9) Abnormal CT scan: Plan: CT abdomen and pelvis: 3 cm density within the lower inner quadrant of the left breast. This probably reflects normal breast tissue or cluster of cysts. - Will need mammogram/ultrasound to further exclude a breast mass. - Please refer to full report in the Ordered Studies section above - Further work up, management, and ff up as outpatient DVT Prophylaxis -SCDs Disposition Discharge to home Follow-up with primary care physician in 1 week Endoscopic ultrasound [facility] GI clinic in 6 weeks Mammogram and breast ultrasound to rule out breast mass Admission and Anticipated Discharge Date Admission Date: December 07, 2020 Subjective Follow-up for acute pancreatitis, etc. Seen sitting up in bed, comfortable, in good spirits States she feels much better overall Abdominal pain and shoulder blade pain resolved Able to tolerate soft diet well No nausea, vomiting, fevers or chills, change with bowel movement Denies chest pain, palpitations, dizziness, shortness of breath No other symptoms States that she is ready to be discharged today Review of Systems Review of Systems: all noted and negative except for above Physical Exam Physical Exam: General- oriented x 3, not in distress, speaks in sentences with no effort or accessory muscle use Eyes- anicteric Neck- no JVD Lungs- clear breath sounds, no crackles or wheezing bilaterally Heart- normal rate, regular rhythm; no murmurs Abdomen- normal bowel sounds, nondistended, soft, no tenderness in all quadrants No Price sign Extremities- no pretibial edema, no calf tenderness Neuro- alert, oriented x 3; no gross focal neurologic deficits Skin- warm & dry Results & Data Results & Data ([facility]) Vital Signs (Past 12 Hours) Vital Signs Temp Pulse Pulse Resp BP BP Pulse Ox 12/09/20 07:29 36.7 C 64 18 111/67 93 12/09/20 07:18 66 12/09/20 03:01 36.7 C 66 18 92/56 L 95 12/08/20 23:06 36.8 C 74 20 120/76 92 12/08/20 22:41 65 all noted and reviewed including below (1) Abdominal pain Abdominal location: epigastric Qualified Code(s): R10.13 - Epigastric pain
--- NOTE | 2020-12-09 10:09 | Discharge Summary ---
Date of Service December 09, 2020 Admission HPI Per Admitting Provider Pt is 50 y/o F with PMH DM II, HTN, dyslipidemia, depression, anxiety, GERD presented to ER with c/o chest pain, upper abdominal pain. Pt states 2 days ago had episode sharp mid lower chest/mid upper abdominal pain. Today he ate bowl of cereal and shortly after developed mid upper abdominal pain and mid lower chest pain described as sharp in nature. Reports also had associated shortness of breath. Having nausea today, no vomiting. Past several weeks with left shoulder aching radiating to back. Denies lower extremity pain, edema or erythema. Patient with history of cholecystectomy. She reports this current pain and left shoulder aching feels like when she had prior gallbladder attacks. Denies fever/chills, diaphoresis, diarrhea, constipation, DOWNING, dizziness, syncope, vision changes, neck pain, orthopnea, palpitations, cough, sore throat, choking, otalgia, rhinorrhea, paresthesias, weakness, extremity weakness, rashes, urinary symptoms. Denies recent surgery, recent travel, or prolonged immobilization. In ER patient afebrile, vitals stable. WBC: 10.8, T bili: 0.7, AST: 443, ALT: 267, alk phos: 146, lipase: 605. D-dimer: 650, CT abdomen pelvis: Mild dilatation of the common bile duct which could be correlated with liver function tests, hepatic steatosis. In ER was given IVF, Pepcid, Zofran with relief of nausea. Patient has not had any further shortness of breath and reports abdominal pain is much improved. Admission Exam (Per Admitting) Constitutional General: no distress, obese Head: normocephalic, atraumatic Eyes: PERRL, EOM's intact, conjunctiva non-injected, anicteric ENT: normal inspection external ears, nose, mucous membranes moist Neck: supple, trachea midline Lungs: clear, no respiratory distress, no wheezing/rhonchi/rales CV: RRR, no murmur, no pretibial edema Abd: normal BS, soft, + tenderness to palpation epigastric only without rebound or guarding Ext: no cyanosis, no erythema, no edema no calf tenderness Neuro: A&O x 3, no focal deficits noted, normal affect Skin: warm, dry Discharge Data Consultations 12/07/20 17:43 ED Decision to Admit Stat 12/07/20 21:31 Consult Gastroenterology Routine Procedures Performed CT OF THE ABDOMEN AND PELVIS WITH CONTRAST CLINICAL HISTORY: Abdominal pain, elevated transaminases/lipase COMPARISON STUDY: None. TECHNIQUE: Following IV administration of 94 mL of Optiray, axial images of the abdomen and pelvis were obtained from the lung bases to the proximal femurs. Images were reviewed in the axial, sagittal, and coronal planes. IV contrast was administered without complication. Automated exposure control was utilized for the study. A dose lowering technique was utilized adhering to the principles of ALARA. CT DOSE: 1192.27 mGy.cm FINDINGS: Lung bases are unremarkable. Note is made of a 3 cm density within the lower inner quadrant of the left breast. This is suboptimally assessed by CT. No pneumatosis, free air or portal venous gas is present. There is hepatic steatosis. No hepatic lesions are present. A splenule is noted. The spleen, adrenal glands and pancreas are unremarkable by CT. There is no peripancreatic infiltration. There are are no peripancreatic fluid collections. The gallbladder is not visualized and may be surgically absent. There is slight dilatation of the common bile duct, measuring 8 mm in caliber. A few hypodense right renal lesions are difficult to characterize given their small size but probably reflect cysts. There is no hydronephrosis. There are no urinary calculi. The appendix is not visualized. There is no right lower quadrant inflammation. The caliber and wall thickness of small and large bowel are normal. Major vasculature is patent. There is no lymphadenopathy or ascites. No acute fracture or suspicious lesion is identified within visualized skeletal structures. IMPRESSION: 1. Normal CT appearance of the pancreas. Nonvisualization of the gallbladder which may be surgically absent. Mild dilatation of the common bile duct which could be correlated with liver function tests. 2. Hepatic steatosis. 3. No bowel obstruction. No bowel wall thickening. 4. 3 cm density within the lower inner quadrant of the left breast. This probably reflects normal breast tissue or cluster of cysts. However, a mammogram and ultrasound are recommended to exclude a breast mass. ACT 112: Negative or not required by law. MRCP CLINICAL HISTORY: Elevated hepatic transaminases. Elevated lipase. COMPARISON STUDY: Abdominal CT dated 12/07/2020. TECHNIQUE: Abdominal MRCP is performed utilizing various T1 and T2-weighted sequences in the axial and coronal planes. 3-D reformats are created and assessed. IV contrast was not administered for this examination. FINDINGS: The gallbladder is surgically absent. There is no intrahepatic biliary ductal dilatation. The common bile duct is mildly dilated measuring 10 mm in diameter. No intraluminal filling defects are identified to suggest choledocholithiasis. T he pancreatic duct is normal in caliber. The liver is enlarged measuring up to 20 cm in length. Hepatic steatosis was shown on today's CT scan. The unenhanced liver is otherwise normal as visualized. The unenhanced spleen, adrenal glands, and pancreas are grossly normal. The kidneys are normal in size and without hydronephrosis. Small renal cysts measure up to 14 mm. No abdominal ascites is identified. The abdominal aorta is normal in caliber. There is no bowel obstruction. The visualized bony structures are normal as imaged. No significant pleural effusion is seen. IMPRESSION: 1. Status post cholecystectomy. 2. Nonspecific dilatation of the common bile duct is likely related to previous cholecystectomy/reservoir effect. 3. There is no evidence of choledocholithiasis. 4. Hepatomegaly and hepatic steatosis. ULTRASOUND BILATERAL LOWER EXTREMITY VENOUS CLINICAL HISTORY: Atypical chest pain. Clinical concern for deep venous thrombosis. COMPARISON STUDY: No priors. TECHNIQUE: Real-time, grayscale, and color Doppler sonography of the deep veins of the right and left lower extremity was performed from the inguinal crease to the calf. Compression and augmentation were utilized. FINDINGS: There is no sonographic evidence of deep venous thrombosis identified in the right or left lower extremity. The common femoral, superficial femoral, and popliteal veins are patent and normally compressible bilaterally. The greater saphenous vein and the profunda femoris vein at the junction with the common femoral vein are clear in both legs. The visualized calf veins are patent bilaterally. IMPRESSION: There is no sonographic evidence of deep venous thrombosis identified in the right or left lower extremity. ACT 112: Negative or not required by law. Hospital Course (1) Abdominal pain: (2) Transaminitis: MILD ACUTE PANCREATITIS POSSIBLE PASSAGE OF GALLBLADDER STONE OR SLUDGE HISTORY OF CHOLECYSTECTOMY per admitting service notes Pt is 50 y/o F with PMH DM II, HTN, dyslipidemia, depression, anxiety, GERD presented to ER with c/o chest pain, upper abdominal pain today after eating cereal with nausea and episode SOB. Several weeks with left shoulder aching radiating to back. H/O cholecystectomy In ER patient afebrile, vitals stable. WBC: 10.8, T bili: 0.7, AST: 443, ALT: 267, alk phos: 146, lipase: 605. D-dimer: 650, CT abdomen pelvis: Mild dilatation of the common bile duct which could be correlated with liver function tests, hepatic steatosis. MRCP: No choledocholithiasis or obstruction noted Hepatomegaly and hepatic steatosis Given lactated Ringer's 200 cc/h Also given bowel rest and pain medications Clinically improved, tolerating diet well Abdominal pain resolved LFTs improving Lipase also normalized [facility] in [facility] consulted Recommend outpatient endoscopic ultrasound to be arranged by [facility] clinic Discussed with GI, does not feel patient's current medication contributed to acute mild pancreatitis Follow hepatomegaly and hepatic steatosis as outpatient (3) Abnormal CT scan: CT abdomen and pelvis: 3 cm density within the lower inner quadrant of the left breast. This probably reflects normal breast tissue or cluster of cysts. - Will need mammogram/ultrasound to further exclude a breast mass. - Please refer to full report in the Ordered Studies section above - Further work up, management, and ff up as outpatient (4) Elevated d-dimer: Mild elevation of D-dimer D-dimer: 650 Patient had episode of shortness of breath with abdominal pain today. Since in ER has not had any further shortness of breath. No tachypnea no tachycardia and no hypoxia noted Low suspicion for PE CT angiogram avoided in light of patient already receiving CT scan IV contrast yesterday Venous Doppler studies negative Not hypoxic, tachycardic No shortness of breath or chest pain Monitor as outpatient (5) Diabetes mellitus, type II: A1c: 7.2 on 10/13/2020 Continue home regimen (6) HTN (hypertension): Stable Continue losartan (7) Dyslipidemia: Hold statin at this time (8) Hypothyroidism: Continue levothyroxine (9) Anxiety and depression: Continue Effexor Disposition Discharge to home Follow-up with primary care physician in 1 week Endoscopic ultrasound [facility] clinic in 6 weeks Mammogram and breast ultrasound to rule out breast mass
[2020-12-09 15:54] VITALS: BP 120/78; PULSE 68; TEMP 98.6; O2SAT 97
== END 2020-12-09 17:30 | disposition home or self-care (01) ==
LOC: ED 13:37 → INTOOBSV 18:24 → 2N 18:24